=== PATIENT | female | born 1985 | race African-American/Black ===

== ENCOUNTER 2022-03-16 08:24 | Observation (INO) ==
[2022-03-16 09:22] LABS: Basophils % 0.3 % (0.0-0.8); Eosinophils % 0.4 % (0.00-10.9); Hematocrit 57.2 VOL% (35.7-47.0); Immature Granulocytes % 0.4 %; Immature Granulocytes Absolute 0.03 #; Lymphocytes # 1.7 10*3/uL (1.4-4.0); Lymphocytes % 25.6 % (21.3-54.2); Mean Corpuscular HGB Conc 30.6 GM/DL (32-36); Mean Corpuscular Volume 95.3 FL (87-102); Mean Platelet Volume 11.6 FL (9.6-12.0); Monocytes # 0.5 10*3/uL (0.11-0.8); Monocytes % 7.9 % (1.7-12.7); NRBC # 0.07 10*3/uL; Neutrophils % 65.4 % (38.7-73.9); Platelet Count 262 T/CUMM (130-400); Red Cell Distribution Width 19.7 % (9.3-17.3); White Blood Count 6.7 T/CUMM (4-12)
[2022-03-16 09:24] LABS: Hemoglobin 17.5 GM/DL (12.0-16.0)
[2022-03-16 09:36] LABS: Albumin 2.7 G/DL (3.4-5.0); Bilirubin,Total 0.7 MG/DL (0.20-1.00); Calcium 9.4 MG/DL (8.5-10.1); Osmolality,Calculated 275.7 MOS/KG (273-304); Potassium 4.8 MMOL/L (3.5-5.1); Total Protein 7.8 G/DL (6.4-8.2)
[2022-03-16] MEDS ORDERED: hydrALAZINE 20 MG/1 ML VIAL IV STA (11:57)
[2022-03-16] MEDS ORDERED: FUROSEMIDE 40 MG/4 ML VIAL IV STA (12:12)
[2022-03-16] MEDS ORDERED: ONDANSETRON 4 MG/2 ML VIAL IV PRN (13:44)
[2022-03-16] MEDS ORDERED: ACETAMINOPHEN 325 MG TABLET PO PRN (13:44)
[2022-03-16] MEDS ORDERED: DOCUSATE SODIUM 100 MG CAPSULE PO PRN (13:44)
[2022-03-16] MEDS ORDERED: hydrALAZINE 20 MG/1 ML VIAL IV PRN (13:44)
[2022-03-16] MEDS ORDERED: LOSARTAN 50 MG TABLET PO SCH (14:00)
[2022-03-16] MEDS: ENOXAPARIN 40 MG/0.4 ML SYRINGE SUBCUT SCH ×2 (14:48→20:43)
[2022-03-16 15:33] LABS: Arterial Base Excess iSTAT 10 MMOL/L (-2.5-2.5); Arterial O2 Saturation iSTAT 38 % (95-100); Arterial PCO2 iSTAT 71 MM HG (35-48); Arterial PO2 iSTAT 24 MM HG (80-95); Arterial Total CO2 iSTAT 42 MMO/L (23-27); Arterial pH iSTAT 7.359 (7.35-7.45)
[2022-03-16 15:41] LABS: Arterial Base Excess iSTAT 9 MMOL/L (-2.5-2.5); Arterial Bicarbonate iSTAT 38.4 MMOL/L (20-26); Arterial O2 Saturation iSTAT 93 % (95-100); Arterial PCO2 iSTAT 63 MM HG (35-48); Arterial PO2 iSTAT 69 MM HG (80-95); Arterial Total CO2 iSTAT 40 MMO/L (23-27); Arterial pH iSTAT 7.391 (7.35-7.45)
[2022-03-16] MEDS: carvediloL 3.125 MG TABLET PO SCH (20:43)
[2022-03-16] MEDS ORDERED: FUROSEMIDE 40 MG/4 ML VIAL IV SCH (21:00)
[2022-03-17 06:10] LABS: Basophils % 0.4 % (0.0-0.8); Eosinophils # 0.1 10*3/uL (0.0-0.87); Eosinophils % 0.9 % (0.00-10.9); Hemoglobin 16.1 GM/DL (12.0-16.0); Immature Granulocytes % 0.3 %; Immature Granulocytes Absolute 0.02 #; Lymphocytes # 1.4 10*3/uL (1.4-4.0); Lymphocytes % 20.3 % (21.3-54.2); Mean Corpuscular HGB Conc 30.7 GM/DL (32-36); Mean Corpuscular Volume 92.9 FL (87-102); Monocytes # 0.7 10*3/uL (0.11-0.8); Monocytes % 10.5 % (1.7-12.7); NRBC # 0.02 10*3/uL; Neutrophils % 67.6 % (38.7-73.9); Platelet Count 227 T/CUMM (130-400); Red Blood Count 5.65 MC/CUMM (3.8-5.5); Red Cell Distribution Width 19.1 % (9.3-17.3); White Blood Count 6.8 T/CUMM (4-12)
[2022-03-17 06:23] LABS: Hematocrit 52.5 VOL% (35.7-47.0)
[2022-03-17 06:36] LABS: Calcium 8.8 MG/DL (8.5-10.1); Osmolality,Calculated 279.4 MOS/KG (273-304); Risk Ratio 4.88; Thyroid Stimulating Hormone 2.8 uIU/ml (0.358-3.74); VLDL Cholesterol 22.4 MG/DL
[2022-03-17] MEDS ORDERED: GLUCAGON 1 MG VIAL IM PRN (06:52)
[2022-03-17] MEDS ORDERED: DEXTROSE 10% 250 ML BAG IV PRN ×3 (06:52→07:30)
[2022-03-17] MEDS ORDERED: INSULIN LISPRO 100 UNIT/ML SUBCUT SCH (07:30)
[2022-03-17 07:57] VITALS: BP 108/60
[2022-03-17] MEDS ORDERED: FUROSEMIDE 40 MG/4 ML VIAL IV SCH (08:00)
[2022-03-17] MEDS: carvediloL 3.125 MG TABLET PO SCH (08:21)
[2022-03-17] MEDS: ENOXAPARIN 40 MG/0.4 ML SYRINGE SUBCUT SCH (08:35)
[2022-03-17] MEDS ORDERED: LOSARTAN 25 MG TABLET PO SCH (09:00)
[2022-03-17] MEDS ORDERED: FLUTICASONE 50 MCG NASAL SPRAY 16 GM BOTTLE BOTH NARES SCH (09:00)
== END 2022-03-17 12:55 | disposition home or self-care (01) ==
LOC: N.2W 08:24 → N.ED 08:24 → N.2W 16:19
PROVIDERS: ADMIT Internal Medicine; ATTEND Internal Medicine